=== PATIENT | female | born 1975 | race Caucasian/White ===

== ENCOUNTER 2016-08-04 20:27 | Emergency (ER) | payer OTHER ==
[2016-08-04 20:43] VITALS: BP 119/81; PULSE 71; TEMP 97.6; BMI 24.4
--- NOTE | 2016-08-04 21:30 | PDOC ---
History of Present Illness - General History Source: Patient Exam Limitations: No Limitations - History of Present Illness Initial Comments: 08/04/16 21:32 The patient is a 41 year old female, with a significant past medical history of anxiety, migraines and thyroid disease, who presents to the emergency department with intermittent pain/tingling/numbness in her hands bilaterally for the past week. She states that she has noticed during this time frame that her fingers have been changing color to a whitish color before returning back to normal. She reports that the discoloration happened today after coming into her home from the car. She notes that the numbness/tingling is also occurring on her toes. 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 The patient denies chest pain, shortness of breath, headache and dizziness. Denies fever, chills, nausea, vomit, diarrhea and constipation. Denies dysuria, frequency, urgency and hematuria. Allergies: Vancomycin Past surgical history: None reported Social history: Cigarette use (10 a day). No alcohol or drug use reported <Phillip Florence - Last Filed: 08/04/16 21:32> <Sarai Conn - Last Filed: 08/05/16 01:25> - General Chief Complaint: Pain Stated Complaint: B/L FINGERS NUMB AND PALE Time Seen by Provider: 08/04/16 21:15 Past History <Phillip Florence - Last Filed: 08/04/16 21:32> - Past Medical History Psychiatric Problems: Yes (ADD) Thyroid Disease: Yes - Psycho/Social/Smoking Cessation Hx Anxiety: No Suicidal Ideation: No Smoking Status: Yes Smoking History: Current every day smoker Number of Cigarettes Smoked Daily: 10 Information on smoking cessation initiated: Yes 'Breaking Loose' booklet given: 08/04/16 <Sarai Conn - Last Filed: 08/05/16 01:25> - Past Medical History Allergies/Adverse Reactions: Allergies Allergy/AdvReac Type Severity Reaction Status Date / Time vancomycin Allergy Verified 10/29/12 17:35 Home Medications: Ambulatory Orders Levothyroxine [Synthroid -] 125 mcg PO DAILY 11/19/12 Dextroamphetamine/Amphetamine [Adderall Xr 20 mg Capsule] 20 mg PO DAILY Review of Systems - Review of Systems Able to Perform ROS?: Yes Comments:: 08/04/16 21:32 GENERAL/CONSTITUTIONAL: No fever, no lethargy HEAD, EYES, EARS, NOSE AND THROAT: No eye discharge. No ear pain or discharge. No sore throat. CARDIOVASCULAR: No chest pain. RESPIRATORY: No cough, no wheezing. GASTROINTESTINAL: No pain, nausea, vomiting, diarrhea or constipation. GENITOURINARY: No dysuria, no change in urine output MUSCULOSKELETAL: No joint pain. No neck or back pain. SKIN: No rash NEUROLOGIC: +Numbness, tingling of fingers bilaterally. No headache, loss of consciousness, irritability. ENDOCRINE: No increased thirst. No abnormal weight change. ALLERGIC/IMMUNOLOGIC: No hives or skin allergy <Phillip Florence - Last Filed: 08/04/16 21:32> *Physical Exam - Vital Signs Last Vital Signs Temp Pulse Resp BP Pulse Ox 97.6 F 71 16 119/81 100 08/04/16 20:41 08/04/16 20:41 08/04/16 20:41 08/04/16 20:41 08/04/16 20:41 - Physical Exam Comments: 08/04/16 21:33 GENERAL: Awake, alert, and appropriately interactive EYES: PERRLA, clear conjunctiva NOSE: Nose is clear without discharge EARS: EACs and TMs are normal THROAT: Moist mucosa, oropharynx is clear without erythema or exudates, NECK: Supple, no adenopathy, no meningismus CHEST: Lungs are clear without crackles, or wheezes HEART: Regular rhythm, normal S1 and S2, no murmurs ABDOMEN: Soft and nontender with normal bowel sounds, no organomegaly, no mass, no rebound, no guarding EXTREMITIES: Normal NEURO: Normal cranial nerves, normal tone SKIN: Unremarkable, no rash, no swelling, no bruising, no signs of injury <Phillip Florence - Last Filed: 08/04/16 21:32> - Vital Signs Last Vital Signs Temp Pulse Resp BP Pulse Ox 97.6 F 71 16 119/81 100 08/04/16 20:41 08/04/16 20:41 08/04/16 20:41 08/04/16 20:41 08/04/16 20:41 <Sarai Conn - Last Filed: 08/05/16 01:25> Medical Decision Making - Medical Decision Making Documentation has been prepared under my direction and personally reviewed by me in its entirety. I attest that this documented accurately reflects all work, treatment, procedures and medical decision making performed by me. As noted above, this 41-year-old woman with a history of hyperthyroidism, ADHD and anxiety presents with intermittent numbness and color changes in her fingers for the last few weeks. Patient describes blanching of the second third and fourth fingers of each hand, typically triggered by cold temperatures. She also has noted numbness in her toes although she has seen blanching of the skin of her toes. No other color changes/no ulceration noted. No previous history of this phenomenon. Of note, the patient smokes half pack of cigarettes daily. Other then possible autoimmune disease related to her thyroid, patient has no other history of autoimmune issues although she notes that her mother does have several autoimmune diseases. Exam currently, as noted above, is normal without evidence of limb ischemia/ ulceration. Raynaud's phenomenon discussed with the patient. Since the patient is a smoker (and is on a vasoconstrictor medication[Adderall]), she is at risk for vasoconstriction of the small vessels in her extremities. Since cold appears to be a trigger mechanism, she should attempt to keep her hands and feet as warm as possible. The patient has already made an appointment with her PMD in the near future. Patient should return to the ER if she has any persistent severe numbness/ blanching or severe pain in her extremities. <Sarai Conn - Last Filed: 08/05/16 01:25> *DC/Admit/Observation/Transfer - Attestations Scribe Attestion: 08/04/16 21:33 Documentation prepared by Phillip Florence, acting as biomedical equipment tech for Sarai Conn MD <Phillip Flornece - Last Filed: 08/04/16 21:32> <Sarai Conn - Last Filed: 08/05/16 01:25> Diagnosis at time of Disposition: Raynauds phenomenon Qualifiers: Raynaud?s-associated gangrene presence: without gangrene Qualified Code(s): I73.00 - Raynaud's syndrome without gangrene - Discharge Dispostion Disposition: HOME Condition at time of disposition: Stable - Patient Instructions Printed Discharge Instructions: Raynauds Disease and Phenomenon Additional Instructions: keep hands warm as much as possible avoid smoking return to ER if pain/blanching is severe or prolonged followup with your general doctor as scheduled
== END 2016-08-04 21:54 | disposition home or self-care (01) ==
LOC: FER 20:27
DX: I73.00 Raynaud's syndrome without gangrene (principal); E05.90 Thyrotoxicosis, unspecified without thyrotoxic crisis or storm; F17.210 Nicotine dependence, cigarettes, uncomplicated; F41.9 Anxiety disorder, unspecified
CPT/HCPCS: 99282-25

== ENCOUNTER 2023-08-28 18:39 | Inpatient (IN) | payer OTHER ==
[2023-08-28] MEDS ORDERED: ONDANSETRON 4 MG/2 ML VIAL ONE (20:00)
[2023-08-28] MEDS ORDERED: FAMOTIDINE 20 MG/50 ML IVPB 20 MG/50 ML MG IVPB ONE (20:00)
[2023-08-28] MEDS ORDERED: diazePAM CARPU-JECT 10 MG/2 ML DISP.SYRIN ONE (20:00)
[2023-08-28] MEDS: LACTATED RINGERS SOLUTION 1000 ML INFUS.BAG IV ONE (20:15)
[2023-08-28] MEDS: diazePAM CARPU-JECT 10 MG/2 ML DISP.SYRIN IVPUSH ONE ×2 (20:16→22:01)
[2023-08-28] MEDS: FAMOTIDINE 20 MG/50 ML IVPB 20 MG/50 ML MG IVPB ONE (20:16)
[2023-08-28] MEDS: ONDANSETRON 4 MG/2 ML VIAL IVPUSH ONE (20:16)
[2023-08-28 20:34] LABS: BASO % 0.5 % (0-2.0); EOS % 0.1 % (0-4.5); HEMATOCRIT 38.2 % (32.4-45.2); HEMOGLOBIN 13.2 GM/dL (10.7-15.3); LYMPH % 14.8 % (8-40); MCH 34.4 pg (25.7-33.7); MCHC 34.6 g/dl (32.0-36.0); MEAN CELL VOLUME 99.4 fl (80-96); MEAN PLT VOLUME 7.3 fl (7.5-11.1); MONO % 6.4 % (3.8-10.2); NEUT % 78.2 % (42.8-82.8); PLATELET COUNT 157 10^3/uL (134-434); RBC 3.84 M/mm3 (3.60-5.2); RDW 19.1 % (11.6-15.6); WHITE BLOOD COUNT 5.7 K/mm3 (4.0-10.0)
[2023-08-28 20:59] LABS: POTASSIUM 3.3 mmol/L (3.5-5.1)
[2023-08-28 21:01] LABS: CALCIUM 7.6 mg/dL (8.5-10.1)
[2023-08-28 21:02] LABS: ALBUMIN 3.6 g/dl (3.4-5.0); BLOOD UREA NITROGEN 19.8 mg/dL (7-18); MAGNESIUM 2.1 mg/dL (1.8-2.4)
[2023-08-28 21:04] LABS: CREATININE 0.9 mg/dL (0.55-1.3)
[2023-08-28 21:06] LABS: BILIRUBIN,TOTAL 1.6 mg/dL (0.2-1); TOT PROT 6.6 g/dl (6.4-8.2)
[2023-08-29] MEDS ORDERED: chlordiazePOXIDE HCL 25 MG CAPSULE ONE (01:29)
[2023-08-29] MEDS: chlordiazePOXIDE HCL 25 MG CAPSULE PO ONE (01:38)
[2023-08-29] MEDS ORDERED: LORazepam 1 MG TABLET PO PRN (05:25)
[2023-08-29] MEDS: POTASSIUM CHLORIDE ORAL LIQUID 20 MEQ/15 ML PO ONE (06:02)
[2023-08-29] MEDS ORDERED: LORazepam 1 MG TABLET ONE ×3 (07:15→19:16)
[2023-08-29] MEDS: LORazepam 2 MG TABLET PO SCH (07:18)
[2023-08-29 07:33] LABS: INR 0.91 (0.83-1.09); PROTHROMBIN TIME (PATIENT) 10.6 SEC (9.7-13.0)
[2023-08-29 07:38] LABS: BASO % 0.1 % (0-2.0); HEMATOCRIT 36.4 % (32.4-45.2); HEMOGLOBIN 12.7 GM/dL (10.7-15.3); LYMPH % 10.6 % (8-40); MCH 34.5 pg (25.7-33.7); MCHC 34.9 g/dl (32.0-36.0); MEAN CELL VOLUME 98.8 fl (80-96); NEUT % 83.3 % (42.8-82.8); PLATELET COUNT 139 10^3/uL (134-434); RBC 3.68 M/mm3 (3.60-5.2); RDW 18.8 % (11.6-15.6)
[2023-08-29 07:41] LABS: POTASSIUM 3.4 mmol/L (3.5-5.1)
[2023-08-29 07:45] LABS: CALCIUM 8.6 mg/dL (8.5-10.1)
[2023-08-29 07:46] LABS: ALBUMIN 3.7 g/dl (3.4-5.0)
[2023-08-29 07:47] LABS: MAGNESIUM 1.7 mg/dL (1.8-2.4)
[2023-08-29 07:49] LABS: CREATININE 0.9 mg/dL (0.55-1.3); PHOSPHOROUS 2.4 mg/dL (2.5-4.9)
[2023-08-29 07:51] LABS: TOT PROT 6.8 g/dl (6.4-8.2)
[2023-08-29 11:53] LABS: BILIRUBIN,DIRECT 1.2 mg/dL (0.0-0.2)
[2023-08-29] MEDS ORDERED: NICOTINE 14 MG/24 HOURS TOPICAL PATCH TD ONE (11:56)
[2023-08-29] MEDS: ENOXAPARIN NA (PORCINE) 40 MG/0.4 ML DISP.SYRIN SQ SCH (12:04)
[2023-08-29] MEDS: FOLIC ACID 1 MG TABLET (FP) PO SCH (12:04)
[2023-08-29] MEDS: LEVOTHYROXINE NA 125 MCG TABLET (FP) PO SCH (12:05)
[2023-08-29] MEDS: THIAMINE HCL 100 MG TABLET (FP) PO SCH (12:05)
[2023-08-29] MEDS: NICOTINE 14 MG/24 HOURS TOPICAL PATCH TD SCH (12:05)
[2023-08-29] MEDS: FOLIC ACID INJECTION - 1 MG, THIAMINE HCL 100 MG, MULTIVIT INJECTION ADULT 10 ML in SOD... IVPB ONE (14:37)
[2023-08-29] MEDS: SODIUM CHLORIDE 1,000 ML IV SCH (19:13)
[2023-08-29 19:44] LABS: ARTERIAL BLD GAS O2 SATURATION 80.3 % (95-98); ARTERIAL BLOOD GAS BASE EXCESS 8.9 mmol/L (-2-2)
[2023-08-29 19:48] LABS: ARTERIAL BLOOD GAS PO2 35.3 mmHg (80-100); ARTERIAL BLOOD GAS pH 7.629 (7.350-7.450)
[2023-08-29] MEDS: LORazepam 1 MG TABLET PO SCH (23:03)
[2023-08-30 00:08] VITALS: BMI 23.6
[2023-08-30] MEDS: LORazepam 1 MG TABLET PO SCH ×2 (05:37→18:29)
[2023-08-30] MEDS: KCL 10 MEQ IVPB 10 MEQ/100 ML INFUS.BAG IVPB SCH ×2 (06:50→10:31)
[2023-08-30 09:01] LABS: BASO % 0.2 % (0-2.0); EOS % 0.1 % (0-4.5); HEMATOCRIT 40.1 % (32.4-45.2); HEMOGLOBIN 13.4 GM/dL (10.7-15.3); LYMPH % 8.7 % (8-40); MCH 33.5 pg (25.7-33.7); MCHC 33.4 g/dl (32.0-36.0); MEAN CELL VOLUME 100.1 fl (80-96); MEAN PLT VOLUME 8.8 fl (7.5-11.1); PLATELET COUNT 102 10^3/uL (134-434); RBC 4.01 M/mm3 (3.60-5.2); RDW 18.8 % (11.6-15.6)
[2023-08-30 09:32] LABS: CHLORIDE 93 mmol/L (98-107); SODIUM 135 mmol/L (136-145)
[2023-08-30 09:34] LABS: CALCIUM 8.6 mg/dL (8.5-10.1); CO2 30 mmol/L (21-32); GLUCOSE,RANDOM 105 mg/dL (74-106)
[2023-08-30 09:35] LABS: ALBUMIN 3.2 g/dl (3.4-5.0); AMYLASE 459 U/L (25-115); BLOOD UREA NITROGEN 17.7 mg/dL (7-18)
[2023-08-30 09:36] LABS: GAMMA GLUTAMYL TRANSPEPTIDASE 676 U/L (5-85)
[2023-08-30 09:37] LABS: BILIRUBIN,DIRECT 0.7 mg/dL (0.0-0.2)
[2023-08-30 09:38] LABS: CREATININE 0.9 mg/dL (0.55-1.3); IRON SERUM 25 ug/dL (50-175); SGOT/AST 225 U/L (15-37); SGPT/ALT 82 U/L (13-61)
[2023-08-30 09:40] LABS: ALK PHOS 135 U/L (45-117); BILIRUBIN,TOTAL 1.3 mg/dL (0.2-1); TOTAL IRON BINDING CAPACITY 192 ug/dL (250-450)
[2023-08-30] MEDS: PIPERACILLIN/TAZOB 3.375 GM 3.375 GM in DEXTROSE 5%-WATER - 50 ML IVPB ONE (10:08)
[2023-08-30 10:20] LABS: ANION GAP 12 mmol/L (4-13); POTASSIUM 2.8 mmol/L (3.5-5.1)
[2023-08-30] MEDS: MINERAL OIL/PET HY-PHL TOPICAL OINTMENT 454 GM JAR TP SCH (10:31)
[2023-08-30 12:45] LABS: ARTERIAL BLD GAS O2 SATURATION 72.4 % (95-98); ARTERIAL BLOOD GAS BASE EXCESS 3.4 mmol/L (-2-2); ARTERIAL BLOOD GAS pH 7.522 (7.350-7.450)
[2023-08-30 12:49] LABS: ALLENS TEST POSITIVE
[2023-08-30 12:52] LABS: ARTERIAL BLOOD GAS PO2 33.7 mmHg (80-100)
[2023-08-30 13:41] LABS: EPI CELLS 18 /uL (0-25.1); HYALINE CASTS 1 /uL (0-3.1); URINE APPEARANCE CLEAR; URINE BACTERIA 32 /uL (0-1359); URINE BILIRUBIN 2+ (NEGATIVE); URINE COLOR DK YELLOW; URINE GLUCOSE (UA) NEGATIVE (NEGATIVE); URINE KETONE 3+ (NEGATIVE); URINE LEUK ESTERASE TRACE (NEGATIVE); URINE NITRITE NEGATIVE (NEGATIVE); URINE PROTEIN 2+ (NEGATIVE); URINE RBC 38 /uL (0-23.9); URINE WBC 9 /uL (0-25.8)
[2023-08-30 13:51] LABS: URINE CRYSTALS NEGATIVE /hpf
[2023-08-30] MEDS ORDERED: LORazepam 2 MG/ML SDV VIAL IVPUSH PRN (14:04)
[2023-08-30] MEDS: LACTATED RINGERS SOLUTION 1,000 ML/1,000 ML INFUS.BAG IV SCH (14:05)
[2023-08-30] MEDS ORDERED: LORazepam 1 MG TABLET PO PRN (14:46)
[2023-08-30] MEDS: LACTULOSE 20 GM/30 ML UDC (FOR RECTAL USE ONLY) PR ONE (16:27)
[2023-08-30 18:29] LABS: POTASSIUM 2.7 mmol/L (3.5-5.1)
[2023-08-30] MEDS: PIPERACILLIN/TAZOB 3.375 GM 3.375 GM in DEXTROSE 5%-WATER - 50 ML IVPB SCH (18:29)
[2023-08-30] MEDS: SODIUM CHLORIDE 1,000 ML IV SCH (19:29)
[2023-08-30 20:59] LABS: METHADONE, UR NEGATIVE (NEGATIVE); OPIATES, URI NEGATIVE (NEGATIVE); PHENCYCLIDINE,URINE NEGATIVE (NEGATIVE); URINE BARBITURATES NEGATIVE (NEGATIVE)
[2023-08-30 21:01] LABS: URINE AMPHETAMINES NEGATIVE (NEGATIVE)
[2023-08-30 21:03] LABS: COCAINE, UR POSITIVE (NEGATIVE); URINE BENZODIAZEPINES POSITIVE (NEGATIVE)
[2023-08-30 22:08] LABS: POTASSIUM 2.9 mmol/L (3.5-5.1)
[2023-08-31] MEDS ORDERED: LORazepam 0.5 MG TABLET PO PRN
[2023-08-31] MEDS: MINERAL OIL/PET HY-PHL TOPICAL OINTMENT 454 GM JAR TP SCH (03:37)
[2023-08-31] MEDS ORDERED: LORazepam 0.5 MG TABLET PO SCH (05:00)
[2023-08-31] MEDS: LORazepam 0.5 MG TABLET PO SCH (06:36)
[2023-08-31] MEDS: KCL 10 MEQ IVPB 10 MEQ/100 ML INFUS.BAG IVPB SCH ×2 (06:42→11:36)
[2023-08-31] MEDS: LEVOTHYROXINE NA 125 MCG TABLET (FP) PO SCH (06:43)
[2023-08-31 08:04] LABS: CHLORIDE 99 mmol/L (98-107); SODIUM 138 mmol/L (136-145)
[2023-08-31 08:05] LABS: ALBUMIN 2.7 g/dl (3.4-5.0); CALCIUM 8.2 mg/dL (8.5-10.1); CO2 28 mmol/L (21-32); GLUCOSE,RANDOM 99 mg/dL (74-106)
[2023-08-31 08:08] LABS: CREATININE 0.8 mg/dL (0.55-1.3)
[2023-08-31 08:09] LABS: BASO % 0.3 % (0-2.0); EOS % 0.3 % (0-4.5); HEMOGLOBIN 12.3 GM/dL (10.7-15.3); LYMPH % 14.3 % (8-40); MCH 34.6 pg (25.7-33.7); MCHC 34.2 g/dl (32.0-36.0); MEAN CELL VOLUME 101.2 fl (80-96); MEAN PLT VOLUME 9.4 fl (7.5-11.1); MONO % 3.2 % (3.8-10.2); NEUT % 81.9 % (42.8-82.8); PLATELET COUNT 83 10^3/uL (134-434); RBC 3.56 M/mm3 (3.60-5.2); RDW 19.1 % (11.6-15.6); WHITE BLOOD COUNT 5.6 K/mm3 (4.0-10.0)
[2023-08-31 08:10] LABS: BILIRUBIN,TOTAL 0.9 mg/dL (0.2-1); SGOT/AST 109 U/L (15-37); SGPT/ALT 61 U/L (13-61); TOT PROT 5.5 g/dl (6.4-8.2)
[2023-08-31 08:11] LABS: ALK PHOS 119 U/L (45-117)
[2023-08-31 08:25] LABS: ANION GAP 12 mmol/L (4-13); POTASSIUM 2.8 mmol/L (3.5-5.1)
[2023-08-31] MEDS: FOLIC ACID 1 MG TABLET (FP) PO SCH (09:34)
[2023-08-31] MEDS: ENOXAPARIN NA (PORCINE) 40 MG/0.4 ML DISP.SYRIN SQ SCH (09:34)
[2023-08-31] MEDS: NICOTINE 14 MG/24 HOURS TOPICAL PATCH TD SCH (09:34)
[2023-08-31] MEDS: LORazepam 0.5 MG TABLET PO PRN (09:35)
[2023-08-31] MEDS: THIAMINE HCL 100 MG TABLET (FP) PO SCH (09:36)
[2023-08-31] MEDS: POTASSIUM CHLORIDE ORAL LIQUID 20 MEQ/15 ML PO ONE (10:07)
[2023-08-31] MEDS: LACTATED RINGERS SOLUTION 1,000 ML/1,000 ML INFUS.BAG IV SCH (15:12)
[2023-09-01] MEDS ORDERED: LORazepam 0.5 MG TABLET PO ONE (05:00)
[2023-09-01] MEDS: LORazepam 0.5 MG TABLET PO ONE (06:13)
[2023-09-01] MEDS: PANTOPRAZOLE 20 MG TABLET PO SCH (10:19)
[2023-09-01] MEDS: LORazepam 2 MG/ML SDV VIAL IVPUSH PRN (12:38)
[2023-09-01] MEDS ORDERED: cloNIDine HCL 0.1 MG TABLET PO PRN (13:04)
[2023-09-01] MEDS: methaDONE HCL 10 MG TABLET PO ONE (14:28)
[2023-09-01 16:25] LABS: HEMATOCRIT 37.5 % (32.4-45.2); HEMOGLOBIN 12.8 GM/dL (10.7-15.3); MCH 34.5 pg (25.7-33.7); MCHC 34.2 g/dl (32.0-36.0); MEAN CELL VOLUME 100.9 fl (80-96); MEAN PLT VOLUME 8.1 fl (7.5-11.1); PLATELET COUNT 129 10^3/uL (134-434); RBC 3.71 M/mm3 (3.60-5.2); RDW 19.7 % (11.6-15.6); WHITE BLOOD COUNT 5.3 K/mm3 (4.0-10.0)
[2023-09-01 16:44] LABS: CHLORIDE 103 mmol/L (98-107); SODIUM 138 mmol/L (136-145)
[2023-09-01 16:47] LABS: ALBUMIN 2.7 g/dl (3.4-5.0); CALCIUM 8.4 mg/dL (8.5-10.1); CO2 24 mmol/L (21-32); GLUCOSE,RANDOM 112 mg/dL (74-106)
[2023-09-01 16:49] LABS: SGPT/ALT 54 U/L (13-61)
[2023-09-01 16:51] LABS: BILIRUBIN,TOTAL 0.8 mg/dL (0.2-1); CREATININE 0.6 mg/dL (0.55-1.3); SGOT/AST 77 U/L (15-37); TOT PROT 5.6 g/dl (6.4-8.2)
[2023-09-01 16:52] LABS: ALK PHOS 112 U/L (45-117)
[2023-09-01 16:57] LABS: ANION GAP 11 mmol/L (4-13); POTASSIUM 2.9 mmol/L (3.5-5.1)
[2023-09-01 17:26] LABS: ANISOCYTOSIS 2+; MACROCYTOSIS 2+; OVALOCYTE 1+; TARGET CELLS 1+
[2023-09-01 17:28] LABS: PLATELET ESTIMATE SLT DECREASE
[2023-09-01] MEDS: KCL 10 MEQ IVPB 10 MEQ/100 ML INFUS.BAG IVPB SCH (18:36)
[2023-09-01] MEDS: MAGNESIUM OXIDE 400 MG TABLET (FP) PO SCH (21:13)
[2023-09-01] MEDS: POTASSIUM CHLORIDE TABS 20 MEQ TABLET.ER (FP) PO SCH (21:13)
[2023-09-02 08:10] LABS: BASO % 0.4 % (0-2.0); EOS % 1.6 % (0-4.5); HEMATOCRIT 35.7 % (32.4-45.2); HEMOGLOBIN 12.4 GM/dL (10.7-15.3); LYMPH % 18.3 % (8-40); MCH 34.7 pg (25.7-33.7); MCHC 34.7 g/dl (32.0-36.0); MEAN PLT VOLUME 7.9 fl (7.5-11.1); MONO % 8.9 % (3.8-10.2); NEUT % 70.8 % (42.8-82.8); PLATELET COUNT 147 10^3/uL (134-434); RBC 3.57 M/mm3 (3.60-5.2); RDW 19.2 % (11.6-15.6); WHITE BLOOD COUNT 4.6 K/mm3 (4.0-10.0)
[2023-09-02 08:23] LABS: POTASSIUM 3.2 mmol/L (3.5-5.1)
[2023-09-02 08:25] LABS: CALCIUM 7.8 mg/dL (8.5-10.1)
[2023-09-02 08:26] LABS: ALBUMIN 2.6 g/dl (3.4-5.0); BLOOD UREA NITROGEN 7.7 mg/dL (7-18); MAGNESIUM 1.6 mg/dL (1.8-2.4)
[2023-09-02 08:29] LABS: CREATININE 0.6 mg/dL (0.55-1.3)
[2023-09-02 08:30] LABS: TOT PROT 5.3 g/dl (6.4-8.2)
[2023-09-02 08:31] LABS: BILIRUBIN,TOTAL 0.9 mg/dL (0.2-1)
[2023-09-02] MEDS: POTASSIUM CHLORIDE ORAL LIQUID 20 MEQ/15 ML PO ONE (09:33)
[2023-09-02] MEDS: MAGNESIUM OXIDE 400 MG TABLET (FP) PO ONE (09:44)
[2023-09-02] MEDS ORDERED: LORazepam 2 MG TABLET PO PRN (11:47)
[2023-09-02] MEDS: LORazepam 1 MG TABLET PO PRN (12:15)
[2023-09-03 07:36] LABS: POTASSIUM 4.3 mmol/L (3.5-5.1)
[2023-09-03 07:38] LABS: CALCIUM 8.7 mg/dL (8.5-10.1)
[2023-09-03 07:39] LABS: ALBUMIN 2.8 g/dl (3.4-5.0); BLOOD UREA NITROGEN 6.9 mg/dL (7-18)
[2023-09-03 07:42] LABS: CREATININE 0.8 mg/dL (0.55-1.3)
[2023-09-03 07:44] LABS: BILIRUBIN,TOTAL 0.6 mg/dL (0.2-1); TOT PROT 5.8 g/dl (6.4-8.2)
[2023-09-03 08:24] LABS: BASO % 0.8 % (0-2.0); EOS % 1.2 % (0-4.5); HEMATOCRIT 40.2 % (32.4-45.2); HEMOGLOBIN 13.2 GM/dL (10.7-15.3); LYMPH % 22.6 % (8-40); MCH 34.1 pg (25.7-33.7); MEAN CELL VOLUME 103.3 fl (80-96); MEAN PLT VOLUME 8.4 fl (7.5-11.1); MONO % 14.9 % (3.8-10.2); NEUT % 60.5 % (42.8-82.8); PLATELET COUNT 196 10^3/uL (134-434); RBC 3.89 M/mm3 (3.60-5.2); WHITE BLOOD COUNT 4.1 K/mm3 (4.0-10.0)
[2023-09-03] MEDS: methaDONE HCL 10 MG TABLET PO ONE (09:18)
[2023-09-03] MEDS: LORazepam 1 MG TABLET PO ONE (17:51)
[2023-09-03] MEDS: cloNIDine HCL 0.1 MG TABLET PO PRN (20:14)
[2023-09-03] MEDS: MAGNESIUM OXIDE 400 MG TABLET (FP) PO SCH (22:14)
[2023-09-03] MEDS: MINERAL OIL/PET HY-PHL TOPICAL OINTMENT 454 GM JAR TP SCH (22:14)
[2023-09-03] MEDS: POTASSIUM CHLORIDE TABS 20 MEQ TABLET.ER (FP) PO SCH (22:14)
[2023-09-04] MEDS: PIPERACILLIN/TAZOB 3.375 GM 3.375 GM in DEXTROSE 5%-WATER - 50 ML IVPB SCH (01:50)
[2023-09-04] MEDS: LEVOTHYROXINE NA 125 MCG TABLET (FP) PO SCH (06:31)
[2023-09-04 09:28] LABS: BASO % 0.8 % (0-2.0); EOS % 1.5 % (0-4.5); HEMATOCRIT 39.6 % (32.4-45.2); HEMOGLOBIN 13.4 GM/dL (10.7-15.3); LYMPH % 22.4 % (8-40); MCH 34.6 pg (25.7-33.7); MCHC 33.9 g/dl (32.0-36.0); MEAN CELL VOLUME 102.1 fl (80-96); MEAN PLT VOLUME 7.7 fl (7.5-11.1); MONO % 15.6 % (3.8-10.2); NEUT % 59.7 % (42.8-82.8); PLATELET COUNT 282 10^3/uL (134-434); RBC 3.88 M/mm3 (3.60-5.2); RDW 19.3 % (11.6-15.6); WHITE BLOOD COUNT 4.7 K/mm3 (4.0-10.0)
[2023-09-04] MEDS: THIAMINE HCL 100 MG TABLET (FP) PO SCH (09:30)
[2023-09-04] MEDS: FOLIC ACID 1 MG TABLET (FP) PO SCH (09:30)
[2023-09-04] MEDS: PANTOPRAZOLE 20 MG TABLET PO SCH (09:30)
[2023-09-04] MEDS: ENOXAPARIN NA (PORCINE) 40 MG/0.4 ML DISP.SYRIN SQ SCH (09:34)
[2023-09-04] MEDS: NICOTINE 14 MG/24 HOURS TOPICAL PATCH TD SCH (09:34)
[2023-09-04 09:52] LABS: POTASSIUM 4.8 mmol/L (3.5-5.1)
[2023-09-04 10:04] LABS: BLOOD UREA NITROGEN 9.9 mg/dL (7-18); CALCIUM 8.9 mg/dL (8.5-10.1); MAGNESIUM 2.2 mg/dL (1.8-2.4)
[2023-09-04 10:07] LABS: CREATININE 0.9 mg/dL (0.55-1.3)
[2023-09-04 10:08] LABS: BILIRUBIN,TOTAL 0.6 mg/dL (0.2-1)
[2023-09-04] MEDS: LORazepam 0.5 MG TABLET PO SCH (12:07)
[2023-09-05] MEDS: methaDONE HCL 10 MG TABLET PO ONE (09:47)
[2023-09-05] MEDS ORDERED: methaDONE HCL 10 MG TABLET PO ONE (10:00)
[2023-09-05] MEDS: AMOX TR/POT CLAV 875MG/125MG TABLETS (FP) PO SCH (17:32)
[2023-09-05] MEDS: MELATONIN 5 MG TABLETS PO PRN (23:52)
[2023-09-06] MEDS: ACETAMINOPHEN 1000 MG/100 ML BAG IVPB ONE (01:12)
[2023-09-07] MEDS: GABAPENTIN 100 MG CAPSULE PO SCH (12:20)
[2023-09-07] MEDS: GABAPENTIN 100 MG CAPSULE PO ONE (17:15)
[2023-09-07] MEDS: diphenhydrAMINE HCL 25 MG CAPSULE (FP) PO PRN (21:40)
[2023-09-07] MEDS: GABAPENTIN 300 MG CAPSULE PO SCH (21:40)
[2023-09-08 08:22] LABS: BASO % 2.4 % (0-2.0); EOS % 0.2 % (0-4.5); HEMATOCRIT 38.2 % (32.4-45.2); HEMOGLOBIN 12.7 GM/dL (10.7-15.3); LYMPH % 20.8 % (8-40); MCH 34.1 pg (25.7-33.7); MCHC 33.3 g/dl (32.0-36.0); MEAN CELL VOLUME 102.3 fl (80-96); MEAN PLT VOLUME 7.7 fl (7.5-11.1); MONO % 10.4 % (3.8-10.2); NEUT % 66.2 % (42.8-82.8); PLATELET COUNT 502 10^3/uL (134-434); RBC 3.74 M/mm3 (3.60-5.2); RDW 19.3 % (11.6-15.6)
[2023-09-08 08:29] LABS: POTASSIUM 4.6 mmol/L (3.5-5.1)
[2023-09-08 08:35] LABS: ALBUMIN 3.4 g/dl (3.4-5.0); BLOOD UREA NITROGEN 23.1 mg/dL (7-18); CALCIUM 9.4 mg/dL (8.5-10.1); MAGNESIUM 2.2 mg/dL (1.8-2.4)
[2023-09-08 08:40] LABS: BILIRUBIN,TOTAL 0.5 mg/dL (0.2-1); TOT PROT 6.8 g/dl (6.4-8.2)
[2023-09-09 09:55] LABS: BASO % 3.5 % (0-2.0); EOS % 0.4 % (0-4.5); HEMATOCRIT 34.8 % (32.4-45.2); HEMOGLOBIN 11.6 GM/dL (10.7-15.3); LYMPH % 21.1 % (8-40); MCH 34.2 pg (25.7-33.7); MCHC 33.2 g/dl (32.0-36.0); MEAN CELL VOLUME 103.3 fl (80-96); MEAN PLT VOLUME 7.7 fl (7.5-11.1); MONO % 8.6 % (3.8-10.2); NEUT % 66.4 % (42.8-82.8); PLATELET COUNT 427 10^3/uL (134-434); RBC 3.38 M/mm3 (3.60-5.2); RDW 19.9 % (11.6-15.6); WHITE BLOOD COUNT 6.9 K/mm3 (4.0-10.0)
[2023-09-09 10:08] LABS: POTASSIUM 4.2 mmol/L (3.5-5.1)
[2023-09-09 10:10] LABS: CALCIUM 9.1 mg/dL (8.5-10.1)
[2023-09-09 10:11] LABS: ALBUMIN 3.2 g/dl (3.4-5.0); BLOOD UREA NITROGEN 20.6 mg/dL (7-18)
[2023-09-09 10:14] LABS: CREATININE 1.1 mg/dL (0.55-1.3)
[2023-09-09 10:15] LABS: BILIRUBIN,TOTAL 0.4 mg/dL (0.2-1); TOT PROT 6.2 g/dl (6.4-8.2)
[2023-09-10 09:05] LABS: BASO % 3.9 % (0-2.0); EOS % 0.7 % (0-4.5); HEMATOCRIT 33.9 % (32.4-45.2); HEMOGLOBIN 11.8 GM/dL (10.7-15.3); LYMPH % 23.1 % (8-40); MCH 35.3 pg (25.7-33.7); MCHC 34.8 g/dl (32.0-36.0); MEAN CELL VOLUME 101.6 fl (80-96); MEAN PLT VOLUME 7.6 fl (7.5-11.1); MONO % 7.7 % (3.8-10.2); NEUT % 64.6 % (42.8-82.8); PLATELET COUNT 445 10^3/uL (134-434); RBC 3.34 M/mm3 (3.60-5.2); RDW 19.4 % (11.6-15.6); WHITE BLOOD COUNT 5.8 K/mm3 (4.0-10.0)
[2023-09-10 09:19] LABS: POTASSIUM 4.4 mmol/L (3.5-5.1)
[2023-09-10 09:22] LABS: CALCIUM 8.7 mg/dL (8.5-10.1)
[2023-09-10 09:23] LABS: ALBUMIN 3.2 g/dl (3.4-5.0); BLOOD UREA NITROGEN 18.5 mg/dL (7-18)
[2023-09-10 09:26] LABS: CREATININE 0.9 mg/dL (0.55-1.3)
[2023-09-10 09:27] LABS: BILIRUBIN,TOTAL 0.4 mg/dL (0.2-1)
[2023-09-10 09:28] LABS: TOT PROT 6.3 g/dl (6.4-8.2)
[2023-09-10] MEDS: ALPRAZolam 0.25 MG TABLET PO PRN (13:13)
[2023-09-10 14:41] VITALS: RESP 18
[2023-09-11 11:16] VITALS: BP 97/66; PULSE 65; TEMP 98.8
== END 2023-09-11 13:24 | disposition home or self-care (01) | DRG 137 ==
LOC: JER 18:39 → JERBED 08-29 04:12 → J7W 08-29 22:47 → OBSVTOIN 08-30 11:11 → J4W 08-30 13:46 → J8W 09-03 19:50
PROVIDERS: ADMIT Internal Medicine; ATTEND Nurse Practitioner Acute Care
DX: J69.0 Pneumonitis due to inhalation of food and vomit (principal); J96.01 Acute respiratory failure with hypoxia; G92.8 Other toxic encephalopathy; M62.82 Rhabdomyolysis; F11.20 Opioid dependence, uncomplicated; D53.1 Other megaloblastic anemias, not elsewhere classified; E87.1 Hypo-osmolality and hyponatremia; G43.909 Migraine, unspecified, not intractable, without status migrainosus; F41.9 Anxiety disorder, unspecified; F10.230 Alcohol dependence with withdrawal, uncomplicated; K76.0 Fatty (change of) liver, not elsewhere classified; E03.9 Hypothyroidism, unspecified; K70.10 Alcoholic hepatitis without ascites; F19.10 Other psychoactive substance abuse, uncomplicated; K29.20 Alcoholic gastritis without bleeding; E87.6 Hypokalemia
CPT/HCPCS: 36415; 36600; 70450-TC; 71045-TC-FY; 74177-TC; 74181-TC; 76700-TC; 80053; 80307; 81003; 82140; 82150; 82248; 82550; 82553; 82728; 82803; 82962; 82977; 83516; 83540; 83550; 83690; 83735; 84100; 84132; 84439; 84443; 84484; 84703; 85025; 85610; 86038; 86140; 86704; 86705; 86706; 86708; 86803; 87045; 87046; 87081; 87086; 87186; 87340; 87517; 87522; 87635; 93005; 93010; 94761; 97116-GP; 97161-GP; 99285-25; G0378; Q9967

== ENCOUNTER 2024-04-25 18:09 | Emergency (ER) | payer OTHER ==
[2024-04-25 18:30] VITALS: BP 127/82; PULSE 90; RESP 16; TEMP 97.3; BMI 19.7
== END 2024-04-25 19:36 | disposition home or self-care (01) ==
LOC: FER 18:09
DX: L73.2 Hidradenitis suppurativa (principal)
CPT/HCPCS: 87070; 87186; 87205; 99283-25

== ENCOUNTER 2024-07-16 14:46 | Emergency (ER) | payer OTHER ==
[2024-07-16 15:31] VITALS: BP 121/85; PULSE 72; RESP 18; TEMP 98.1; BMI 23.4
== END 2024-07-16 15:35 | disposition home or self-care (01) ==
LOC: FER 14:46
DX: L73.2 Hidradenitis suppurativa (principal)
CPT/HCPCS: 99283-25